=== PATIENT | male | born 1960 | race Caucasian/White ===

== ENCOUNTER 2018-01-19 21:35 | Emergency (ER) | payer MEDICAID ==
[~2018-01-19] VITALS: Ht 177.8 cm; Wt 75.0 kg
[2018-01-19] MEDS ORDERED: KETOROLAC TROMETHAMINE 30 MG/ML VIAL IM ONE (23:00)
[2018-01-20] VITALS: BP 110/70
== END 2018-01-20 00:06 | disposition home or self-care (01) ==
LOC: EMS 21:37
DX: M79.645 Pain in left finger(s) (principal); V18.0XXA Pedal cycle driver injured in noncollision transport accident in nontraffic accident, initial encounter; Y93.89 Activity, other specified; Y92.89 Other specified places as the place of occurrence of the external cause; Y99.8 Other external cause status
CPT/HCPCS: 29125; 73130; 96372; 99284; J1885

== ENCOUNTER 2023-03-09 16:25 | Inpatient (IN) | payer MEDICAID, OTHER ==
[~2023-03-09] VITALS: Ht 177.8 cm; Wt 68.2 kg
[2023-03-09 21:10] LABS: EOSINOPHILS % (AUTO) 0.5 % (1.0-6.0); HEMATOCRIT 46.9 % (41-53); HEMOGLOBIN 15.9 g/dL (13.5-17.5); LYMPHOCYTES # (AUTO) 2.2 K/uL (1.0-4.8); LYMPHOCYTES % (AUTO) 39.6 % (22.0-44.0); MEAN CORPUSCULAR HEMOGLOBIN 31.7 pg (26.0-34.0); MEAN CORPUSCULAR HGB CONC 33.9 G/dL (31.0-37.0); MEAN CORPUSCULAR VOLUME 94 fL (80-100); MONOCYTES # (AUTO) 0.7 K/uL (0.1-1.0); MONOCYTES % (AUTO) 13.2 % (2.0-9.0); NEUTROPHILS # (AUTO) 2.5 K/uL (1.8-7.7); NEUTROPHILS % (AUTO) 45.7 % (40.0-70.0); PLATELET COUNT (AUTO) 166 K/uL (150-450); RED BLOOD CELL COUNT(AUTO) 5.01 MIL/uL (4.50-5.90); RED CELL DISTRIBUTION WIDTH 13.7 % (11.5-14.5); WHITE BLOOD COUNT (AUTO) 5.4 K/uL (4.5-11.0)
[2023-03-09 21:26] LABS: COVID AG,FIA SOURCE NASAL SWAB
[2023-03-09 21:28] LABS: ALCOHOL, BLOOD (SERUM) < 3 mg/dL (0-10)
[2023-03-09 21:29] LABS: ANION GAP 9 mmol/L (8-16); CARBON DIOXIDE 25 mmol/L (22-29); CHLORIDE 104 mmol/L (98-107); GLUCOSE,RANDOM 101 mg/dL (70-110); POTASSIUM 3.6 mmol/L (3.5-5.1); SODIUM SERUM 138 mmol/L (136-145)
[2023-03-09 21:30] LABS: CALCIUM, TOTAL 9.1 mg/dL (8.8-10.5); CREATININE 0.87 mg/dL (0.60-1.30); GLOMERULAR FILTR. RATE CALC > 60 mL/min (>60); UREA NITROGEN, BLOOD 11 mg/dL (7-18)
[2023-03-09 21:33] LABS: ALANINE AMINOTRANSFERASE 40 U/L (12-78); ALBUMIN 3.8 g/dL (3.4-5.0); ALKALINE PHOSPHATASE 83 U/L (46-116); ASPARTATE AMINOTRANSFERASE 31 U/L (15-37); BILIRUBIN,TOTAL 0.8 mg/dL (0.1-1.0); TOTAL PROTEIN, SERUM 7.2 g/dL (6.4-8.2)
[2023-03-09 21:54] LABS: SARS-COV2 (COVID) ANTIGEN,FIA Positive (Negative)
[2023-03-09] MEDS ORDERED: MORPHINE SULFATE 2 MG/ML SYRINGE IVP PRN (22:15)
[2023-03-09] MEDS ORDERED: ZOLPIDEM TARTRATE 5 MG TABLET PO PRN (22:15)
[2023-03-09] MEDS ORDERED: ALBUTEROL SULFATE 2.5 MG/0.5 ML NEB SOLUTION NEB PRN (22:15)
[2023-03-09] MEDS ORDERED: BISACODYL 10 MG RECTAL RECTAL SUPPOSITORY PR PRN (22:15)
[2023-03-09] MEDS ORDERED: HYDROCODONE/ACETAMINOPHEN 5-325 MG TABLET PO PRN (22:15)
[2023-03-09] MEDS ORDERED: MAGNESIUM HYDROXIDE SUSPENSION 30 ML UDCUP PO PRN (22:15)
[2023-03-09] MEDS ORDERED: ChlordiazePOXIDE HCL 25 MG CAPSULE PO PRN (22:15)
[2023-03-09] MEDS ORDERED: LORazepam 2 MG/ML VIAL IVP PRN (22:15)
[2023-03-09] MEDS ORDERED: IPRATROPIUM BROMIDE 0.5 MG/2.5 ML NEB SOLUTION NEB PRN (22:15)
[2023-03-09] MEDS ORDERED: ONDANSETRON HCL 4 MG/2 ML VIAL IVP PRN (22:15)
[2023-03-09] MEDS: 1: MAGNESIUM SULFATE 2 GM, MVI, ADULT NO.1 WITH VIT K 10 ML, THIAMINE 100 MG, FOLIC ACID IV SCH ×5 (23:38)
[2023-03-09] MEDS: HEPARIN SODIUM,PORCINE 5,000 UNITS/ML VIAL SQ SCH (23:39)
[2023-03-10 01:22] VITALS: BP 132/73; PULSE 67; RESP 20; TEMP 98.3
[2023-03-10 02:56] LABS: PH,URINE DRUG SCREEN 6.5 (5.0-8.0)
[2023-03-10 03:02] LABS: ALCOHOL, URINE DRUG SCREEN NEGATIVE (NEGATIVE); AMPHET/METH SCREEN,URINE NEGATIVE (NEGATIVE); BARBITURATE SCREEN, URINE NEGATIVE (NEGATIVE); BENZODIAZEPINES SCREEN,URINE NEGATIVE (NEGATIVE); CANNABINOID SCREEN,URINE POSITIVE (NEGATIVE); COCAINE SCREEN,URINE NEGATIVE (NEGATIVE); METHADONE SCREEN, URINE NEGATIVE (NEGATIVE); OPIATE SCREEN,URINE NEGATIVE (NEGATIVE); PHENCYCLIDINE SCREEN,URINE NEGATIVE (NEGATIVE)
[2023-03-10] MEDS ORDERED: INFLUENZA VIRUS VACCINE QVS 2023-24 (6MO+)/PF 60 MCG/0.5 ML SYRINGE IM. ONE (03:30)
[2023-03-10 04:28] VITALS: BP 117/75; PULSE 57; RESP 20; TEMP 98.2
[2023-03-10] MEDS: HEPARIN SODIUM,PORCINE 5,000 UNITS/ML VIAL SQ SCH ×2 (09:15→16:30)
[2023-03-10] MEDS: PANTOPRAZOLE SODIUM 40 MG/VIAL IVP SCH (09:15)
[2023-03-10] MEDS: ChlordiazePOXIDE HCL 25 MG CAPSULE PO SCH ×4 (09:15→22:30)
[2023-03-10 10:10] VITALS: BP 133/90; PULSE 61; RESP 18; TEMP 97.6
[2023-03-10 10:35] VITALS: BP 133/90; PULSE 61; RESP 18; TEMP 97.6
[2023-03-10] MEDS: 1: MAGNESIUM SULFATE 2 GM, MVI, ADULT NO.1 WITH VIT K 10 ML, THIAMINE 100 MG, FOLIC ACID IV SCH ×5 (12:41)
[2023-03-11] MEDS: HEPARIN SODIUM,PORCINE 5,000 UNITS/ML VIAL SQ SCH ×4 (00:09→23:43)
[2023-03-11] MEDS: 1: MAGNESIUM SULFATE 2 GM, MVI, ADULT NO.1 WITH VIT K 10 ML, THIAMINE 100 MG, FOLIC ACID IV SCH ×5 (00:10)
[2023-03-11] MEDS: ChlordiazePOXIDE HCL 25 MG CAPSULE PO PRN ×2 (00:39→04:46)
[2023-03-11 04:49] VITALS: BP 110/72; PULSE 69; RESP 20; TEMP 98.9
[2023-03-11 08:10] VITALS: BP 116/68; PULSE 71; RESP 18; TEMP 98.4
[2023-03-11] MEDS: ChlordiazePOXIDE HCL 25 MG CAPSULE PO SCH (09:06)
[2023-03-11] MEDS: PANTOPRAZOLE SODIUM 40 MG/VIAL IVP SCH (09:06)
[2023-03-11 15:37] VITALS: BP 131/73; PULSE 65; RESP 18; TEMP 98.6
[2023-03-11 20:24] VITALS: BP 104/60; PULSE 67; RESP 20; TEMP 99.1
[2023-03-11] MEDS: ACETAMINOPHEN 325 MG TABLET PO PRN (22:47)
[2023-03-12 05:15] VITALS: BP 105/57; PULSE 56; RESP 18; TEMP 97.7
[2023-03-12] MEDS ORDERED: ChlordiazePOXIDE HCL 10 MG CAPSULE PO PRN (07:00)
[2023-03-12 07:01] LABS: COVID AG,FIA SOURCE NASAL SWAB
[2023-03-12 08:00] LABS: SARS-COV2 (COVID) ANTIGEN,FIA Positive (Negative)
[2023-03-12] MEDS: HEPARIN SODIUM,PORCINE 5,000 UNITS/ML VIAL SQ SCH ×2 (08:36→15:59)
[2023-03-12] MEDS: PANTOPRAZOLE SODIUM 40 MG DR TABLET PO SCH (08:37)
[2023-03-12] MEDS ORDERED: ChlordiazePOXIDE HCL 10 MG CAPSULE PO SCH (09:00)
[2023-03-12 09:31] VITALS: BP 129/67; PULSE 58; RESP 18; TEMP 97.8
[2023-03-12 17:00] VITALS: BP 130/81; PULSE 62; RESP 20; TEMP 98.4
[2023-03-12 19:39] VITALS: BP 115/67; PULSE 64; RESP 20; TEMP 98
[2023-03-13] MEDS: HEPARIN SODIUM,PORCINE 5,000 UNITS/ML VIAL SQ SCH ×2 (00:44→08:24)
[2023-03-13 04:41] VITALS: BP 113/65; PULSE 58; RESP 18; TEMP 97.9
[2023-03-13] MEDS ORDERED: ChlordiazePOXIDE HCL 10 MG CAPSULE PO PRN (07:00)
[2023-03-13 08:12] VITALS: BP 100/69; PULSE 63; RESP 18; TEMP 97.8
[2023-03-13] MEDS: PANTOPRAZOLE SODIUM 40 MG DR TABLET PO SCH (08:23)
[2023-03-13] MEDS: ACETAMINOPHEN 325 MG TABLET PO PRN ×2 (09:11→13:33)
== END 2023-03-13 14:14 | DRG 896 ==
LOC: EMS 16:27 → 6S 23:10
PROVIDERS: ADMIT Hospitalist; ATTEND Hospitalist
DX: F10.139 Alcohol abuse with withdrawal, unspecified (principal); U07.1 COVID-19
CPT/HCPCS: 80053; 80307; 85025; 93005; 99285; C9113; G0480; J1644; J3411; J3475; J3490; J7030

== ENCOUNTER 2023-04-26 19:29 | Inpatient (IN) | payer OTHER ==
[~2023-04-26] VITALS: Ht 177.8 cm; Wt 141.0 kg
[2023-04-26 20:47] LABS: BASOPHILS % (AUTO) 1.7 % (0.0-2.0); HEMATOCRIT 41.4 % (41-53); HEMOGLOBIN 14.2 g/dL (13.5-17.5); LYMPHOCYTES # (AUTO) 2.7 K/uL (1.0-4.8); LYMPHOCYTES % (AUTO) 40.3 % (22.0-44.0); MEAN CORPUSCULAR HEMOGLOBIN 31.3 pg (26.0-34.0); MEAN CORPUSCULAR HGB CONC 34.3 G/dL (31.0-37.0); MEAN CORPUSCULAR VOLUME 91 fL (80-100); MONOCYTES # (AUTO) 0.8 K/uL (0.1-1.0); MONOCYTES % (AUTO) 12.1 % (2.0-9.0); NEUTROPHILS # (AUTO) 2.9 K/uL (1.8-7.7); NEUTROPHILS % (AUTO) 42.9 % (40.0-70.0); PLATELET COUNT (AUTO) 242 K/uL (150-450); RED BLOOD CELL COUNT(AUTO) 4.55 MIL/uL (4.50-5.90); RED CELL DISTRIBUTION WIDTH 12.6 % (11.5-14.5); WHITE BLOOD COUNT (AUTO) 6.8 K/uL (4.5-11.0)
[2023-04-26 20:57] LABS: ANION GAP 4 mmol/L (8-16); CALCIUM, TOTAL 9.1 mg/dL (8.8-10.5); CARBON DIOXIDE 31 mmol/L (22-29); CHLORIDE 107 mmol/L (98-107); CREATININE 0.89 mg/dL (0.60-1.30); GLOMERULAR FILTR. RATE CALC > 60 mL/min (>60); GLUCOSE,RANDOM 59 mg/dL (70-110); INR 1.1 (0.9-1.1); POTASSIUM 4.3 mmol/L (3.5-5.1); SODIUM SERUM 142 mmol/L (136-145); UREA NITROGEN, BLOOD 20 mg/dL (7-18)
[2023-04-26 21:03] LABS: ALANINE AMINOTRANSFERASE 51 U/L (12-78); ALKALINE PHOSPHATASE 87 U/L (46-116); ASPARTATE AMINOTRANSFERASE 30 U/L (15-37); BILIRUBIN,TOTAL 0.3 mg/dL (0.1-1.0); LIPASE 34 U/L (16-77); TOTAL PROTEIN, SERUM 8.1 g/dL (6.4-8.2)
[2023-04-26 21:05] LABS: LACTIC ACID 0.8 mmol/L (0.4-2.0); TROPONIN I-HIGH SENSITIVITY 6 ng/L (<76)
[2023-04-26 23:01] LABS: TROPONIN I-HIGH SENSITIVITY 7 ng/L (<76)
[2023-04-26] MEDS ORDERED: DEXTROSE 50%-WATER 25 GM/50 ML SYRINGE IVP ONE (23:45)
[2023-04-26] MEDS: ACETAMINOPHEN 325 MG TABLET PO PRN (23:57)
[2023-04-26] MEDS: ZOLPIDEM TARTRATE 5 MG TABLET PO PRN (23:58)
[2023-04-27 00:08] LABS: COVID AG,FIA SOURCE NASAL SWAB
[2023-04-27 00:24] LABS: SARS-COV2 (COVID) ANTIGEN,FIA Negative (Negative)
[2023-04-27] MEDS ORDERED: PNEUMOCOCCAL VACCINE POLYVALENT 0.5 ML SYRINGE [PPSV23] IM. ONE (03:30)
[2023-04-27 05:07] VITALS: BP 114/67; PULSE 65; RESP 18; TEMP 97.9
[2023-04-27 07:28] LABS: BASOPHILS % (AUTO) 1.1 % (0.0-2.0); EOSINOPHILS % (AUTO) 3.9 % (1.0-6.0); HEMATOCRIT 37.8 % (41-53); HEMOGLOBIN 13.3 g/dL (13.5-17.5); LYMPHOCYTES # (AUTO) 2.2 K/uL (1.0-4.8); MEAN CORPUSCULAR HEMOGLOBIN 31.6 pg (26.0-34.0); MEAN CORPUSCULAR HGB CONC 35.2 G/dL (31.0-37.0); MEAN CORPUSCULAR VOLUME 90 fL (80-100); MONOCYTES # (AUTO) 0.6 K/uL (0.1-1.0); MONOCYTES % (AUTO) 11.7 % (2.0-9.0); NEUTROPHILS # (AUTO) 2.5 K/uL (1.8-7.7); NEUTROPHILS % (AUTO) 44.3 % (40.0-70.0); PLATELET COUNT (AUTO) 203 K/uL (150-450); RED CELL DISTRIBUTION WIDTH 12.8 % (11.5-14.5); WHITE BLOOD COUNT (AUTO) 5.5 K/uL (4.5-11.0)
[2023-04-27] MEDS: FAMOTIDINE 20 MG TABLET PO SCH ×2 (08:31→20:21)
[2023-04-27] MEDS: DOCUSATE SODIUM 100 MG CAPSULE PO SCH ×2 (08:31→20:21)
[2023-04-27] MEDS: ACETAMINOPHEN 325 MG TABLET PO PRN (08:32)
[2023-04-27 09:08] VITALS: BP 143/71; PULSE 82; RESP 19; TEMP 98
[2023-04-27] MEDS: PANTOPRAZOLE SODIUM 40 MG/VIAL IVP SCH ×2 (13:30→20:21)
[2023-04-27] MEDS ORDERED: PEG 3350/NA SULF,BICARB,CL/KCL 4000 ML SOLUTION PO ONE (15:00)
[2023-04-27 15:43] VITALS: BP 97/64; PULSE 67; RESP 18; TEMP 97.8
[2023-04-27 19:55] VITALS: BP 92/55; PULSE 70; RESP 18; TEMP 98
[2023-04-28] MEDS: ZOLPIDEM TARTRATE 5 MG TABLET PO PRN (00:03)
[2023-04-28 04:25] VITALS: BP 107/64; PULSE 64; RESP 20; TEMP 97.8
[2023-04-28 08:06] LABS: HEPATITIS C AB (EIA) Non Reactive (Non Reactive)
[2023-04-28] MEDS: DOCUSATE SODIUM 100 MG CAPSULE PO SCH (09:00)
[2023-04-28 10:09] VITALS: BP 117/70; PULSE 70; RESP 20; TEMP 97.6
[2023-04-28] MEDS: PANTOPRAZOLE SODIUM 40 MG/VIAL IVP SCH (10:31)
[2023-04-28] MEDS: FAMOTIDINE 20 MG TABLET PO SCH (10:31)
[2023-04-28] MEDS ORDERED: DOCU-385 PO (11:20)
[2023-04-28] MEDS ORDERED: FAMO20 PO (11:20)
[2023-04-28] MEDS ORDERED: ACET-2247 PO (11:22)
[2023-04-28] MEDS ORDERED: LIDOCAINE/PF 2% 5 ML VIAL IM ONE (13:59)
[2023-04-28] MEDS ORDERED: PROPOFOL 1% 20 ML VIAL IVP ONE (13:59)
== END 2023-04-28 14:00 | DRG 394 ==
LOC: EMS 19:29 → 6S 04-27 00:48
PROVIDERS: ADMIT Internal Medicine; ATTEND Internal Medicine
PROC: 0DBP8ZZ Excision of Rectum, Via Natural or Artificial Opening Endoscopic (ICD-10-PCS; 2023-04-28)
PROC: 0DBK8ZZ Excision of Ascending Colon, Via Natural or Artificial Opening Endoscopic (ICD-10-PCS; principal; 2023-04-28 08:00)
DX: K64.8 Other hemorrhoids (principal); Z68.41 Body mass index [BMI] 40.0-44.9, adult; E66.01 Morbid (severe) obesity due to excess calories; D64.9 Anemia, unspecified; N40.0 Benign prostatic hyperplasia without lower urinary tract symptoms; K62.1 Rectal polyp; K64.4 Residual hemorrhoidal skin tags; Z20.822 Contact with and (suspected) exposure to COVID-19; K63.5 Polyp of colon; K59.00 Constipation, unspecified; Z96.649 Presence of unspecified artificial hip joint; Z87.891 Personal history of nicotine dependence
CPT/HCPCS: 74022; 80053; 83605; 83690; 84484; 85025; 85610; 86803; 87081; 87340; 88305; 93005; 99285; C9113; J2704; J3490